=== PATIENT | female | born 1975 | race Caucasian/White ===

== ENCOUNTER → 2017-10-25 10:05 | Outpatient (CLI) | payer OTHER, SELFPAY ==
[2017-10-25 15:51] LABS: Follicle Stimulating Hormone 85.3 mIU/mL; Thyroid Stim Hormone (TSH) 3.25 uIU/mL (0.358-3.74)
[2017-10-27 17:21] LABS: HPV Reflexed? NOT INDICATED
== END ==
PROVIDERS: Visit Provider Obstetrics & Gynecology
DX: Z12.4 Encounter for screening for malignant neoplasm of cervix (principal); N92.5 Other specified irregular menstruation; R61 Generalized hyperhidrosis
CPT/HCPCS: 36415; 83001; 84443; 88175; G0145

== ENCOUNTER → 2019-02-16 07:19 | Outpatient (CLI) | payer OTHER, SELFPAY ==
--- NOTE | 2019-02-16 07:27 | BI_ITS ---
MAMMOGRAPHY - BILATERAL SCREENING REASON FOR EXAM: Female, 44 years old. Routine annual screening examination. PERTINENT HISTORY: Non-contributory. TECHNIQUE: Digital bilateral breast christine (3D mammographic acquisition) in the CC and MLO projections. 2-D mediolateral oblique (MLO) and craniocaudad (CC) views of both breasts were obtained. CAD: Full Field Digital Mammography with Computer Added Detection was performed. COMPARISON: None. Baseline examination. FINDINGS: Breast Composition: The breasts are heterogeneously dense, which may obscure small masses. There are no dominant masses or suspicious calcifications. No other significant abnormalities are identified. BI/SCREEN MAMM (CAD) W/CHRISTINE BILAT IMPRESSION: Negative screening mammogram. Yearly followup mammogram recommended. (A) ASSESSMENT CATEGORY: BIRADS Category 1: Negative. A letter regarding these results will be sent to the patient by the facility within 30 days. Approximately 10% of breast cancers are not detected by mammography. A normal mammogram should not delay biopsy of a clinically suspicious abnormality. [id number] Electronically Signed: Seamus Mosley, at 8:22 EDT , Service support ,
== END ==
PROVIDERS: Visit Provider Obstetrics & Gynecology
DX: Z12.31 Encounter for screening mammogram for malignant neoplasm of breast (principal)
CPT/HCPCS: 77063; 77067

== ENCOUNTER → 2020-11-16 06:44 | Outpatient (CLI) | payer OTHER, SELFPAY ==
--- NOTE | 2020-11-16 06:49 | CT_ITS ---
STUDY: CT CHEST WITH CONTRAST REASON FOR EXAM: Female, 45 years old. 3.7 cm ascending aorta seen on 2013 CT RADIATION DOSAGE (If Supplied By Facility): CTDIvol = ( 12.09 ) mGy, DLP = ( 373.67 ) mGycm TECHNIQUE: Transaxial imaging was performed following intravenous administration of IV 100mL Isovue-300. Multiplanar coronal and sagittal images were reformatted. Individualized dose optimization techniques were used for this CT. COMPARISON: Comparison is made with prior examination dated 09/14/2013. FINDINGS: The lungs are normal. There is no demonstrated pleural abnormality. Normal heart and pericardium. There are multiple small lymph nodes within the mediastinum, which are normal in size and morphology most compatible with reactive lymph hyperplasia. Normal hilar regions. Normal enhanced pulmonary arteries. The proximal ascending thoracic aorta measures 35.9 mm. This is within normal limits. Normal osseous structures. Small hiatal hernia. CT/Chest WITH Contrast IMPRESSION: The root of the ascending thoracic aorta measures within normal limits at 35.9 mm. Electronically Signed: Seamus Mosley MD at 8:43 EDT , Service support ,
== END ==
PROVIDERS: PCP Family Medicine; Referring Provider Family Medicine; Visit Provider Family Medicine
DX: I71.2 Thoracic aortic aneurysm, without rupture (principal)
CPT/HCPCS: 71260; Q9967

== ENCOUNTER → 2023-04-12 | Outpatient (CLI) | payer OTHER, SELFPAY ==
--- NOTE | 2023-04-12 10:33 | RAD_ITS ---
STUDY: X-RAY - RIGHT FOOT CLINICAL: Female, 48 years old. Right heel pain. TECHNIQUE: 3 view(s) of the foot. COMPARISON: None. FINDINGS: Inferior calcaneal spur. Normal visualized subtalar, talonavicular, calcaneocuboid, tarsal and tarsometatarsal articulations. Normal metatarsi. 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 Normal soft tissues. RAD/Foot min 3 Views IMPRESSION: Calcaneal spur with mild arthrosis of the MTP and IP joints. Electronically Signed: Parminder Breaux MD at 15:47 EDT ,
== END | disposition home or self-care (01) ==
PROVIDERS: PCP Family Medicine; Referring Provider Family Medicine; Visit Provider Family Medicine
DX: M79.671 Pain in right foot (principal); G89.29 Other chronic pain
CPT/HCPCS: 73630

== ENCOUNTER 2023-05-28 16:26 | Emergency (ER) | payer OTHER, SELFPAY ==
[2023-05-28 16:28] VITALS: BP 173/99; PULSE 87; RESP 18; TEMP 36.1; O2SAT 100; BMI 34.9
--- NOTE | 2023-05-28 16:32 | NURSING ---
NO OLD EKGS
[2023-05-28 16:36] VITALS: BP 176/100; PULSE 87; RESP 24
--- NOTE | 2023-05-28 16:51 | EKG12_ITS ---
Test Reason : CP Blood Pressure : / mmHG Vent. Rate : 084 BPM Atrial Rate : 084 BPM P-R Int : 130 ms QRS Dur : 080 ms QT Int : 374 ms P-R-T Axes : 042 020 027 degrees QTc Int : 441 ms Normal sinus rhythm Nonspecific ST abnormality Abnormal ECG Confirmed by MITZI RATLIFF, ROB ([id number]), food expeditor EMELIA FOURNIER ([id number]) on 06/05/2023 7:09:20 AM Referred By: INDIGO/INDER Confirmed By:SIMA CARTAGENA MD
--- NOTE | 2023-05-28 16:51 | CT_ITS ---
EXAM: CT ANGIOGRAPHY CHEST WITHOUT AND WITH INTRAVENOUS CONTRAST CLINICAL INDICATION: CP, borderline enlarged aorta TECHNIQUE: Helically acquired angiography images were obtained of the chest without and with intravenous contrast. This CT exam was performed using one or more of the following dose reduction techniques: automated exposure control, adjustment of the mA and/or kV according to patient size, and/or use of iterative reconstruction technique. MIP reconstructed images were created and reviewed. CONTRAST: IV 100mL Isovue-370 COMPARISON: 11/16/2020. FINDINGS: PULMONARY ARTERIES: Unremarkable. Normal in caliber. No evidence of pulmonary embolism. AORTA: Unremarkable. Normal in caliber. No evidence of dissection. GREAT VESSELS OF AORTIC ARCH: Unremarkable. Normal in caliber. No evidence of dissection. LUNGS AND PLEURAL SPACES: Unremarkable. No mass. No consolidation or edema. No pleural effusion or thickening. No pneumothorax. HEART: Unremarkable. Heart size is normal. No pericardial effusion. No significant coronary artery calcifications. MEDIASTINUM: Unremarkable. No mediastinal or hilar adenopathy. Esophagus is unremarkable. No hiatal hernia. THYROID: Unremarkable. No thyroid lesions. BONES/JOINTS: Unremarkable. No suspicious lytic or blastic abnormality. CT/CTA Chest W/WO Contrast IMPRESSION: Negative CTA chest. Electronically Signed: Stefani Jim MD at 18:26 EST Reading Location ID and State: [id number] / Tel , Service support ,
--- NOTE | 2023-05-28 16:53 | EDS_ITS ---
HPI History of Present Illness Chief Complaint: Chest Pain Informant: patient Onset/Context/Timing Onset: Yesterday Narrative Narrative: Patient presents with chest and neck pressure and slight upper back pressure t hat started last evening. She felt like she is might be starting to get sick. She took some ibuprofen yesterday and felt somewhat better. This morning she woke up with phlegm in her throat and the pressure in her chest again. She went to urgent care but her blood pressure was elevated so they sent her to the emergency room. [facility] Medical History Enlarged aorta Home Medications NK 05/28/23 [History Last Taken Unknown] Allergy/AdvReac Type Severity Reaction Status Date / Time iodine Allergy Rash Verified 05/28/23 16:27 Social History Smoking Status: Never smoker ROS ROS ED Constitutional Constitutional ED: Denies chills or fever(s) Eyes Eyes: Denies discharge from eye(s) ENT ENT ED: Denies discharge from eye(s), rhinorrhea or sore throat Cardiovascular Cardiovascular: Reports chest pain; Denies palpitations Respiratory/Chest Respiratory/Chest: Denies cough or dyspnea Gastrointestinal Gastrointestinal: Denies abdominal pain, nausea or vomiting Genitourinary Genitourinary ED: Denies dysuria Musculoskeletal Musculoskeletal: Reports back pain and neck pain; Denies extremity pain Integumentary Denies Abrasions or rash Neurologic Neurologic: Denies headache(s) or weakness Allergic/Immunologic Allergic/Immunologic ED: Denies lip swelling or urticaria EXAM Physical Exam Const Vital Signs: 05/28/23 16:28 05/28/23 16:36 05/28/23 16:37 Temperature 97 F L Temperature Source Temporal Pulse Rate 87 87 Respiratory Rate 18 24 H Respiratory Effort Normal Non-Labored Respiratory Pattern Blood Pressure 173/99 H 176/100 H Blood Pressure Mean 123 125 Pulse Ox 100 Oxygen Delivery Method Room Air Room Air 05/28/23 16:37 05/28/23 16:55 05/28/23 18:14 Temperature Temperature Source Pulse Rate 66 Respiratory Rate 14 Respiratory Effort Normal Non-Labored Respiratory Pattern Normal Blood Pressure 144/92 H Blood Pressure Mean 109 Pulse Ox 99 Oxygen Delivery Method Room Air Room Air Positive well nourished and well developed General Appearance ED: well developed HEENT Reports moist mucous membranes Eyes EOMs intact bilaterally Chest Wall inspection of chest normal and palpation of chest normal Resp normal respiratory effort and clear to auscultation bilaterally Cardio regular rate and regular rhythm GI non-tender Palpation: soft Extremity normal to inspection Neuro oriented x3 and no sensory deficits noted Motor Exam: strength 5/5 throughout Psych mental status grossly normal Skin no rashes or lesions noted MDM MDM MDM Narrative Medical decision making narrative: In review of records patient has been seen for previous CAT scans secondary to an enlarged ascending aorta. On last scan in 2000 ascending aorta measured 35.9 mm which was within normal limits. Given these findings with her high blood pressure and pain in the upper chest that goes to her back I did choose to perform a CTA of her chest to reevaluate this. Labwork obtained to evaluate for leukocytosis, anemia, and electrolyte derangement. EKG obtained to evaluate for cardiac arrhythmia/ischemia. History & Record Review Discussion w/independent historian: Patient and Significant other Additional record(s) reviewed:: Prior outpatient record Lab Data Attestation: I reviewed the patient's lab results. Labs: Laboratory Results - last 24 hr 05/28/23 16:54 WBC 7.6 RBC 4.80 Hgb 14.0 Hct 43.6 MCV 90.8 MCH 29.2 MCHC 32.1 RDW Std Deviation 42.3 RDW Coeff of Curly 12.7 Plt Count 259 MPV 10.6 Immature Gran % (Auto) 0.300 Neut % (Auto) 57.8 Lymph % (Auto) 31.3 Scott % (Auto) 8.5 Eos % (Auto) 1.4 Baso % (Auto) 0.7 Absolute Neuts (auto) 4.4 Absolute Lymphs (auto) 2.38 Nucleated RBC % 0 Sodium 141 Potassium 3.6 Chloride 105 Carbon Dioxide 29.0 Anion Gap 7 BUN 12 Creatinine 0.83 Estim Creat Clear Calc 70.80 Est GFR (MDRD) Af Amer 94 Est GFR (MDRD) Non-Af 78 BUN/Creatinine Ratio 14.5 Glucose 105 Calcium 9.2 Troponin I High Sens 4 Radiography Diagnostic Testing: Clinical Impression(s) from Imaging Studies Chest CTA 05/28/23 16:51 IMPRESSION: Negative CTA chest. Electronically Signed: Stefani Jim MD at 18:26 EST Reading Location ID and State: [id number] / Tel , Service support , EKG Initial EKG: Attestation: I personally reviewed and interpreted this EKG as follows: Interpretation: Sinus Rhythm (Sinus at 84 with no acute ischemia.) Treatment and Re-Evaluation :: CBC was normal white count 7.6 with a hemoglobin of 14.0. Chemistry studies are unremarkable. Troponin is normal at 4. CTA of the chest is unremarkable with normal vasculature. On repeat evaluation patient resting comfortably. Her systolic blood pressure is now in the 130s. 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 I also discussed that she may be getting a viral URI that is causing some tightness I see nothing that would need an antibiotic at this time. Patient will continue supportive care. Discharge Plan Triage Chief Complaint: Chest Pain Other Complaint: Hypertension ED Provider: Zakiya Manuel Dx/Rx/DC Orders Clinical Impression: Atypical chest pain Instructions: ED Chest Pain, Noncardiac Prescriptions: No Action NK Primary Care Provider: Duke Lawson Referrals: Duke Lawson MD [Primary Care Provider] - 1 Week if not improving Disposition Disposition: Home, Self Care
[2023-05-28 16:55] VITALS: O2SAT 99
[2023-05-28 17:08] LABS: Absolute Lymphocyte Count 2.38 X10^3/uL (0.83-4.51); Absolute Neutrophil Count 4.4 X10^3/uL (2.0-7.7); Basophil# 0.05 X10^3/uL; Basophil% 0.7 % (0-1); Eosinophil# 0.11 X10^3/uL; Eosinophils% 1.4 % (0-5); Hematocrit 43.6 % (37-47); Lymphocyte # 2.38 X10^3/ul (0.83-4.51); Lymphocyte % 31.3 % (19-41); Mean Corp Hgb Conc 32.1 g/dL (32-36); Mean Corpuscular Hgb 29.2 pg (27.0-32.0); Mean Corpuscular Volume 90.8 fL (81-99); Mean Platelet Vol. 10.6 fl (6.2-12.0); Monocyte# 0.65 X10^3/uL; Monocyte% 8.5 % (0-10); NRBC Flagged by Analyzer 0 % (0-5); Neutrophil % 57.8 % (47-70); Platelet Count 259 K/mm3 (150-450); RBC Distribution Width CV 12.7 % (11.6-14.6); RBC Distribution Width SD 42.3 fl (35.1-43.9); White Blood Count 7.6 K/mm3 (4.4-11.0)
[2023-05-28 17:23] LABS: Anion Gap 7 (5-15); BUN 12 mg/dL (7-18); BUN/Creat Ratio 14.5 RATIO (10-20); Calcium,Total 9.2 mg/dL (8.5-10.1); Chloride 105 mmol/L (98-107); Creatinine, Serum 0.83 mg/dL (0.55-1.02); EST Glomerular Filtration Rate 78 mL/min (>60); Est Glom Filt Rate - Afr Amer 94 mL/min (>60); Glucose 105 mg/dL (74-106); Potassium 3.6 mmol/L (3.5-5.1); Sodium Level 141 mmol/L (136-145); Troponin-I HS (w/2H Reflex) 4 pg/mL (3.0-54.0)
[2023-05-28 18:14] VITALS: BP 144/92; PULSE 66; RESP 14
[2023-05-28 18:59] LABS: Reflex Troponin-HS? (from REC) Y
[2023-05-31 14:55] LABS: Thyroid Stim Hormone (TSH) 1.97 uIU/mL (0.358-3.74)
== END 2023-05-28 18:47 | disposition home or self-care (01) ==
PROVIDERS: Emergency Provider Emergency Medicine; PCP Family Medicine; Visit Provider Emergency Medicine
DX: R07.89 Other chest pain (principal); I10 Essential (primary) hypertension; M54.2 Cervicalgia
CPT/HCPCS: 71275; 80048; 84439; 84443; 84484; 85025; 93005; 99285; Q9967; A4216

== ENCOUNTER → 2023-05-31 | Outpatient (CLI) | payer OTHER, SELFPAY | END | disposition home or self-care (01) | LOC: MFPLAB 08:39 | PROVIDERS: PCP Family Medicine; Referring Provider Family Medicine; Visit Provider Family Medicine | DX: E04.1 Nontoxic single thyroid nodule (principal) ==